=== PATIENT | female | born 1965 | race Caucasian/White ===

== ENCOUNTER → 2017-05-03 | Outpatient (CLI) | payer BC | END | disposition disaster alternative care site (69) | LOC: GRAD 14:00 | DX: R47.81 Slurred speech (principal) ==

== ENCOUNTER → 2017-05-23 | Outpatient (CLI) | payer BC | END | disposition disaster alternative care site (69) | LOC: GRAD 10:49 | DX: R20.2 Paresthesia of skin (principal); M47.892 Other spondylosis, cervical region; M48.02 Spinal stenosis, cervical region | CPT/HCPCS: A9577 ==